=== PATIENT | male | born 1990 | race Caucasian/White ===

== ENCOUNTER 2016-09-01 15:23 | Emergency (ER) | payer MEDICAID, OTHER ==
[~2016-09-01] VITALS: Wt 72.0 kg
[2016-09-01] MEDS ORDERED: LIDOCAINE 1% (MDV) 20 ML INJ SC ONE (17:00)
[2016-09-01] MEDS ORDERED: BAC30OI TOP (17:33)
--- NOTE | 2016-09-01 17:33 | ERD ---
ER Documentation Chief Complaint Date/Time DATE: 09/01/16 TIME: 17:29 Chief Complaint LEFT HAND LACERATION FROM A CUT FROM KNIFE. BLEEDING CONTROLLED HPI This patient is a [id number] 26-year-old male with no significant medical history presenting to the emergency department for laceration to his left hand which he sustained at approximately 2 PM today. He was cooking with a knife when it slipped and he cut himself. The patient's tetanus is not up-to- date. He reports a 3 out of 10 pain which is worse on moving his hand. He does not have any numbness, tingling, loss of function, or other symptoms or injuries at this time. ROS All systems reviewed and are negative except as per history of present illness. Medications Home Meds Active Scripts Bacitracin* (Bacitracin Zinc Oint*) 28.35 Gm Oint, 1 APPLIC TOP BID for 5 Days, #1 TUB APPLI TO Prov:ALEISHA GRANT PA-C 09/01/16 PMhx/Soc Medical and Surgical Hx: pt denies Medical Hx, pt denies Surgical Hx Hx Alcohol Use: No Hx Substance Use: No Hx Tobacco Use: Yes (6 CIGS) Smoking Status: Current every day smoker FmHx Noncontributory for chief complaint Physical Exam Vitals Vital Signs Date Time Temp Pulse Resp B/P Pulse Ox O2 Delivery O2 Flow Rate FiO2 09/01/16 15:25 98.0 72 20 128/77 96 Physical Exam INITIAL VITAL SIGNS: Reviewed by me. GENERAL: Alert and interactive. No acute distress. HEAD: Head is normocephalic and atraumatic. EYES: EOMI. No scleral icterus. No conjunctival injection. ENT: Moist mucosa. NECK: Supple. Full range of motion. RESPIRATORY: Normal respiratory effort. Clear breath sounds bilaterally. No wheezing, rales, or rhonchi. CV: Regular rate and rhythm. Normal S1 S2. No S3 or S4. No murmurs. ABDOMEN: Soft, non-distended, non-tender. No guarding. No rebound. No masses. EXTREMITIES: No deformity. SKIN: There is a 1 cm superficial laceration to the dorsal aspect of the left hand with mild active bleeding but no deformity. Strength and sensation is intact. NEUROLOGIC: Alert and oriented x 4. Speech is normal. Moves all extremities equally. No motor or sensory deficits noted. Results 24 hrs Current Medications Medications (Trade) Dose Ordered Sig/Carlo Route PRN Reason Start Time Stop Time Status Last Admin Dose Admin Lidocaine (Xylocaine 1% (Mdv) 20 ml) 20 ml ONCE ONCE SC 09/01/16 17:00 09/01/16 17:01 DC Procedures/MDM 26-year-old male presents secondary to complaints of laceration on his left hand which he sustained at 2 PM today with a cooking knife. On physical examination there is strength and sensation intact and there are no signs of ligamental or tendon injury. There is mild active bleeding. There is no deformity, evidence of tendon or ligamental injury, or other indication for x- ray at this time. There is no foreign body noted on examination. Laceration Repair by me: Anesthesia: 1% lidocaine locally Location: Dorsal aspect of the left hand Tendon/Joint/Nerves: No injury Foreign body: None detected after copious irrigation and exploration Technique: Simple Interrupted Sutures. 3 x 4-0 nylon sutures were used Complexity: No subcutaneous sutures/mucosal repair/ edge excision Post Closure Length: 1 cm Patient's bleeding was easily controlled in the department and there is no indication of anemia. No evidence of compartment syndrome, neurologic injury, vascular injury, open joint, tendon laceration, or foreign body. Patient is appropriate for outpatient follow up. 48 hour wound check. Scar minimization instructions given. The patient is stable for discharge at this time. He will be given a prescription for bacitracin topical. His questions and concerns were addressed. He is stable for discharge at this time and he agrees with the plan and diagnosis per Departure Diagnosis: Primary Impression: Laceration Condition: Stable Additional Instructions: Return in 48 hours for wound recheck. Return in 10-12 days for suture removal. Follow-up with your primary care physician within 1 week. Return to the emergency department immediately should you have any new or worsening symptoms, uncontrolled fevers, or other unexplained symptoms. Take all medications as directed. ALEISHA GRANT PA-C Sep 01, 2016 17:33
== END 2016-09-01 18:18 | disposition home or self-care (01) ==
LOC: FTE 15:23
DX: S61.412A Laceration without foreign body of left hand, initial encounter (principal); F17.210 Nicotine dependence, cigarettes, uncomplicated; W26.0XXA Contact with knife, initial encounter; Y92.9 Unspecified place or not applicable
CPT/HCPCS: 12001; Z7502; Z7610